=== PATIENT | female | born 1960 | race Caucasian/White ===

== ENCOUNTER → 2020-06-25 12:36 | Outpatient (CLI) | payer OTHER, SELFPAY ==
--- NOTE | 2020-06-25 12:36 | VDUE_ITS ---
Reason For Study: Renal failure stage 4 Right Arm Left Arm Right Cephalic Vein at the wrist measures Left Cephalic Vein at the wrist measures 0.12 x 0.12 cm. 0.12 x 0.13 cm. Right Cephalic Vein in the forearm measures Left Cephalic Vein in the forearm measures 0.10 x 0.10 cm. 0.13 x 0.14 cm. Right Cephalic Vein below antecub measures Left Cephalic Vein below antecub measures 0.12 x 0.12 cm. 0.18 x 0.18 cm. Right Cephalic Vein above antecub measures Left Cephalic Vein above antecub measures 0.15 x 0.15 cm. 0.08 x 0.08 cm. Right Cephalic Vein mid bicep measures 0.18 Left Cephalic Vein at mid bicep measures x 0.18 cm. 0.17 x 0.17 cm. Right Cephalic Vein at the shoulder measures Left Cephalic Vein at the shoulder measures 0.25 x 0.27 cm. 0.31 x 0.31 cm. Right Basilic Vein at the origin measures Basilic vein at origin measures 0.37 x 0.50 0.39 x 0.41 cm. cm. Right Basilic Vein mid bicep measures 0.32 x Basilic vein at bicep measures 0.38 x 0.50 0.32 cm. cm. Right Basilic Vein above antecub measures Basilic vein above antecub measures 0.48 x 0.30 x 0.31 cm. 0.63 cm. Right Brachial artery measures 0.37 x 0.37 Left Brachial artery measures 0.36 x 0.38 cm cm with a velocity of 85.3 cm/sec. with a velocity of 101.3 cm/sec. Right Radial artery measures 0.21 x 0.20 cm Left Radial artery measures 0.20 x 0.19 cm with a velocity of 63.3 cm/sec. with a velocity of 78.8 cm/sec. Interpretation Summary Diminutive bilateral upper extremity cephalic veins Adequate bilateral upper arm basilic veins Normal diameter and flow bilateral brachial and radial arteries. Ordering Physician: Duglas Guerrero Performed By: Cecelia More RVT ?
== END ==
PROVIDERS: Referring Provider Surgery; Visit Provider Surgery
DX: Z01.818 Encounter for other preprocedural examination (principal); N18.4 Chronic kidney disease, stage 4 (severe)
CPT/HCPCS: 93970

== ENCOUNTER 2020-07-21 07:16 | Day surgery (SDC) | payer OTHER, SELFPAY ==
[2020-07-09 13:26] VITALS: BMI 24.9
--- NOTE | 2020-07-14 10:06 | EKG12_ITS ---
Test Reason : PRE OP Blood Pressure : / mmHG Vent. Rate : 084 BPM Atrial Rate : 084 BPM P-R Int : 148 ms QRS Dur : 074 ms QT Int : 362 ms P-R-T Axes : 032 031 040 degrees QTc Int : 427 ms Normal sinus rhythm Low voltage QRS Septal infarct , age undetermined , cannot be excluded Abnormal ECG Confirmed by LESLEY TEE, ALTON ([id number]), make up editor MAYNOR ALTAMIRANO ([id number]) on 07/15/2020 1:08:12 PM Referred By: Duglas Guerrero Confirmed By:ALTON SUTTON MD
[2020-07-14 10:48] LABS: Hematocrit 36.7 % (37-47); Hemoglobin 11.7 g/dL (12.0-15.0); Mean Corp Hgb Conc 31.9 g/dL (32-36); Mean Corpuscular Hgb 28.7 pg (27.0-32.0); Mean Platelet Vol. 10.2 fl (6.2-12.0); Platelet Count 300 K/mm3 (150-450); RBC Distribution Width CV 12.2 % (11.6-14.6); RBC Distribution Width SD 40.4 fl (35.1-43.9); Red Blood Count 4.08 M/mm3 (4.2-5.4); White Blood Count 6.9 K/mm3 (4.4-11.0)
[2020-07-14 11:21] LABS: AST(SGOT) 14 U/L (15-37); Alanine Aminotransfer ALT/SGPT 17 U/L (13-56); Albumin, Serum 4.1 g/dL (3.2-5.0); Alkaline Phosphatase 68 U/L (45-117); Anion Gap 7 (5-15); BUN 49 mg/dL (7-18); BUN/Creat Ratio 10.8 RATIO (10-20); Calcium,Total 9.3 mg/dL (8.5-10.1); Chloride 107 mmol/L (98-107); Creatinine, Serum 4.55 mg/dL (0.55-1.02); EST Glomerular Filtration Rate 10 mL/min (>60); Est Glom Filt Rate - Afr Amer 13 mL/min (>60); Globulin 4.1 g/dL (2.2-4.2); Glucose 111 mg/dL (74-106); Potassium 4.7 mmol/L (3.5-5.1); Protein, Total 8.2 g/dL (6.4-8.2); Sodium Level 136 mmol/L (136-145)
[2020-07-21 07:43] VITALS: BP 137/83; PULSE 80; RESP 16; TEMP 37.3; O2SAT 100; BMI 25.1
[2020-07-21] MEDS: 0.9 % Sodium Chloride Viaflo 500 ML IV.SOLN IV (08:06)
--- NOTE | 2020-07-21 08:45 | PCM.HP.BLA ---
Problem List (1) Chronic renal failure, stage 4 (severe) Status: Chronic History and Physical Date of Admission: 07/21/20 Intake Visit Reasons: fistula creation Diet Consultant Required: No Is patient in pain?: No Allergies metronidazole [From Flagyl] Allergy (Unknown, Verified 07/09/20 13:28) Unknown Medications amlodipine 10 mg tablet 10 mg PO DAILY tab 07/09/20 [History Confirmed 07/09/20] cholecalciferol (vitamin D3) 50 mcg (2,000 unit) capsule 50 mcg PO DAILY 07/09/20 [History Confirmed 07/09/20] polyethylene glycol 3350 17 gram/dose oral powder 17 g PO DAILY 07/09/20 [History Confirmed 07/09/20] PFSH Medical History Polycystic kidney disease (Acute) Hypertension (Chronic) Surgical History Hx of hysterectomy (Acute) Hx of appendectomy (Acute) Hx of tubal ligation (Acute) Hx of cholecystectomy (Acute) Family History Mother Kidney disease Hypertension Sister Hypertension Kidney disease Sister Hypertension Kidney disease Brother Hypertension Kidney disease Social History (Updated 07/09/20 @ 13:[address] Duglas Guerrero MD) Smoking Status: Never smoker second hand exposure: No alcohol intake: never substance use type: does not use caffeine: Yes what type of physical activity do you participate in: walking frequency: 3-4 times per week HPI HPI HPI: ESTEFANY ESPINO, is a 59 F who presents to the office today for surgical consultation for creation of arteriovenous hemodialysis fistula. The patient is referred by her roll off driver and a written copy of my surgical consult recommendations will be returned to him. The patient has polycystic kidney disease. She has had progressive renal decline. She is not had previous hospitalizations or IV access. Whenever she gets blood drawn it is typically at the right antecubital space. She is right arm dominant. She has had no DVT. At the [facility] on June 25, 2020 she had bilateral extremity vein mapping. Unfortunately this demonstrates that bilateral upper extremity cephalic veins are very diminutive throughout. Bilateral upper arm basilic veins are borderline. Bilateral radial arteries are small while bilateral brachial arteries appear to be adequate [facility] [address] [place] [address] Saphenous Vein Mapping, Bilat 06/25/20 1243 MR#: [id number] Name: ESTEFANY ESPINO #:[id number] : 1960 59From: Duglas Guerrero MD Attending Dr: ISAIAH Crawfordtatus: REG CLI Ordering Dr: Duglas Guerrero MDDate: 06/25/20 Location:CVSSex:FC Admitted: Reason For Study: Renal failure stage 4 Right Arm Left Arm Right Cephalic Vein at the wrist measures Left Cephalic Vein at the wrist measures 0.12 x 0.12 cm. 0.12 x 0.13 cm. Right Cephalic Vein in the forearm measures Left Cephalic Vein in the forearm measures 0.10 x 0.10 cm. 0.13 x 0.14 cm. Right Cephalic Vein below antecub measures Left Cephalic Vein below antecub measures 0.12 x 0.12 cm. 0.18 x 0.18 cm. Right Cephalic Vein above antecub measures Left Cephalic Vein above antecub measures 0.15 x 0.15 cm. 0.08 x 0.08 cm. Right Cephalic Vein mid bicep measures 0.18 Left Cephalic Vein at mid bicep measures x 0.18 cm. 0.17 x 0.17 cm. Right Cephalic Vein at the shoulder measures Left Cephalic Vein at the shoulder measures 0.25 x 0.27 cm. 0.31 x 0.31 cm. Right Basilic Vein at the origin measures Basilic vein at origin measures 0.37 x 0.50 0.39 x 0.41 cm. cm. Right Basilic Vein mid bicep measures 0.32 x Basilic vein at bicep measures 0.38 x 0.50 0.32 cm. cm. Right Basilic Vein above antecub measures Basilic vein above antecub measures 0.48 x 0.30 x 0.31 cm. 0.63 cm. Right Brachial artery measures 0.37 x 0.37 Left Brachial artery measures 0.36 x 0.38 cm cm with a velocity of 85.3 cm/sec. with a velocity of 101.3 cm/sec. Right Radial artery measures 0.21 x 0.20 cm Left Radial artery measures 0.20 x 0.19 cm with a velocity of 63.3 cm/sec. with a velocity of 78.8 cm/sec. Interpretation Summary Diminutive bilateral upper extremity cephalic veins Adequate bilateral upper arm basilic veins Normal diameter and flow bilateral brachial and radial arteries. Ordering Physician: Duglas Guerrero Performed By: Cecelia More RVT ? 06/25/20 8000 Date Duglas Guerrero MD HPI HPI HPI: ESTEFANY ESPINO, is a 59 F who presents to the office today for ROS General General: No weight change, appetite, fatigue, colon cancer, breast cancer or weakness HEENT HEENT: No difficulty swallowing, eye injury, eye surgery, swollen glands or hoarseness Endo Endocrine: No thyroid disease, diabetes mellitus, thyroid cancer, Hair loss, heat intolerance or cold intolerance Skin Skin: No rash or changing moles Breast Breast: No left breast lump, right breast lump, nipple discharge, breast pain, abnormal mammogram, abnormal US or breast enlargement Musc Musculoskeletal: No back problems, arthritis, rheumatoid arthritis, gout or joint pain Cardio Cardiovascular: Yes high blood pressure; no murmur, pacemaker, heart disease, atrial fibrillation, heart attack, heart stent, palpitations, shortness of breat with exertion or chest pain Psych Psychiatric: No depression, anxiety or hearing voices Resp Respiratory: No shortness of breath, No sleep apnea, No cough, No COPD, No asthma, No emphysema, No wheezing Gastro Gastrointestinal: No abdominal pain, No nausea or vomiting, No diarrhea, No constipation, No blood in stool, No acid reflux, No hemorrhoids, No ulcers, No gallbladder problem, No black,tarry stools Yusef Hematologic: No blood thinners, No blood disorders, No bleeding, No anemia, No blood clots Neuro Neurologic: No weakness Exam Const General: cooperative, healthy appearing, comfortable, no acute distress Nutritional Appearance: average body habitus Orientation: alert, awake HENSC Head: normal to inspection Chest Breast Palpation: No nipple discharge Resp Effort & Inspection: normal respiratory effort Auscultation: clear to auscultation bilaterally Cardio Rate: regular rate Rhythm: regular rhythm Heart Sounds: no murmurs GI Other: Soft, mildly distended, nontender Skin General: no rashes or lesions noted Neuro Cognition: normal cognition Extrem General: no calf tenderness Other: Bilateral upper extremities demonstrate very small cephalic veins. Ultrasound inspection of the left upper arm suggests the basilic vein is intact however closer to the antecubital space it does appear to be quite small. Psych Affect: normal affect Assessment & Plan Problems 1. Polycystic kidney disease Q61.3 2. Chronic renal failure, stage 4 (severe) N18.4 Plan Stage IV chronic renal sufficiency. Polycystic kidney disease. Right arm dominant. Venous mapping demonstrates diminutive cephalic veins throughout. I propose for her an attempt at a left upper arm stage I basilic vein to brachial artery AV fistula creation. I discussed the technique, benefit, risk, alternatives. No guarantees of success have been offered. She is aware that additional procedures will be required. She states that she has an upcoming appointment for transplant consultation. She is not yet on hemodialysis. She has had an opportunity to ask and have questions answered. We will schedule and proceed at her discretion. I very much appreciate the kind opportunity of assisting with her surgical care. Copy and Dr. Ayse Guerrero M.D., F.A.C.S. s Orders Orders: Saphenous Vein Mapping, Bilat 06/25/20 Z01.818 Coding Level of Care Code 19694 Diagnoses Polycystic kidney disease Q61.3 Chronic renal failure, stage 4 (severe) N18.4 I have re-examined the patient. There are no clinical changes since date of exam. Procedure Criteria Procedure Type: Elective COVID Risk Discussion: The surgeon/proceduralist and patient have discussed in detail the risk of exposure to and/or potential harm posed by the COVID-19 virus with having a surgery/procedure at this time versus the risk of delaying the surgery/procedure. It is not possible to know either the risk of delaying the surgery or procedure or chance of getting an infection with perfect accuracy, but a joint decision was made between the patient and the surgeon/proceduralist to proceed at this time with the scheduled surgery/procedure as indicated on the consent form.
--- NOTE | 2020-07-21 09:19 | DCINST_ITS ---
Discharge Diet: Renal Diet Discharge Activity: May Not Drive - for 2-3 days or while taking narcotic pain medications., May Shower, May Take a Tub Bath - in 5 days. Lifting Restrictions: 5 pounds Keep extremity elevated above heart level: - - Keep arm elevated above the heart level for 3 days. Additional Activity Instructions:: Exercise hand vigorously with a stress ball. Call your doctor if your incision/area has: Continuous Slow Oozing, Sudden Increased Bleeding - apply pressure and call your doctor., Increased Pain/ Swelling, Increased Redness, Foul Smelling Discharge Call your doctor if you observe: Fever of 101 or Higher Suture Line Care: Avoid Pulling/Pushing, Avoid Pinching/Bending Cleanse incision/area with: Keep Dressing Clean & Dry Additional Dressing/Incision Instructions:: Change or remove dressing in two days. May protect with a gauze bandaid. Allergies/Adverse Reactions: Allergies metronidazole [From Flagyl] Allergy (Unknown, Verified 07/21/20 07:40) Unknown Medications to take at Discharge amlodipine 10 mg tablet 10 mg PO QHS tab 07/09/20 cholecalciferol (vitamin D3) 50 mcg (2,000 unit) capsule 50 mcg PO DAILY 07/09/20 polyethylene glycol 3350 17 gram/dose oral powder 17 g PO DAILY 07/09/20 Primary Care Physician: Ayse Licea DO [Primary Care Provider] - Test Results: Test results from this visit will be discussed in further detail at your follow- up appointment, if applicable. Please Follow Up With: Duglas Guerrero MD - [phone] When: Call to make an appointment for suture removal and follow up in 10 days.
[2020-07-21] MEDS: Bupivacaine Mpf 0.5% 30 ML VIAL (09:36)
[2020-07-21] MEDS: Heparin Injection (Vial) 5,000 UNIT/ML VIAL 5000 UNIT (09:36)
--- NOTE | 2020-07-21 10:09 | OP.PCM_ITS ---
Problem List (1) Chronic renal failure, stage 4 (severe) Status: Chronic Report of Operation Date of Procedure: 07/21/20 Pre-Operative Diagnosis: Stage IV chronic renal insufficiency Post-Operative Diagnosis: Same Surgery/Procedure Performed:: Stage I left upper extremity basilic vein to brachial artery arteriovenous fistula creation Description of Surgical Findings:: Timeout and informed consent was obtained. The patient was taken to the operating room placed upon the table the left upper extremity was sterilely prepped and draped ultrasound was used to map the course of the basilic vein which at the antecubital area directly overlying the brachial artery. 1% lidocaine mixed 50-50 with 0.5% Marcaine was used as a local anesthetic. 6 cc was used. A longitudinal incision was made over the basilic vein sharp and blunt dissection was used I dissected free the need for the brachial artery was identified and surfer (Darby controlled. The patient received 6000 units of heparin. The vein was ligated distally with 2 hemoclips. The vein was spatulated. Peripheral vascular clamps were placed on the brachial artery. A 11 blade was used to make an arteriotomy which was extended with Gallego scissors. The vein was spatulated and a end-to-side anastomosis was created with a running 7-0 Prolene. At the completion there is good antegrade retrograde flow. The vein appeared to have good flow in it. There was still a 2+ left radial pulse. Hemostasis was intact. The wound was closed with a deep layer of interrupted 3-0 Vicryl and then a running septic or 4-0 Monocryl. Steri-Strips Telfa site dressing applied. Sponge and instrument and needle counts were reported the surgeon to be correct. Specimens none. Drains none. Blood loss minimal. The patient was taken to the recovery area in satisfactory vision without apparent complication Duglas Guerrero M.D., F.A.C.S. Type of Anesthesia:: Local MAC Anesthesiologist: Richie Caldera
[2020-07-21 10:20] VITALS: BP 104/78; BP 137/83; PULSE 71; RESP 18; O2SAT 94
[2020-07-21 10:25] VITALS: BP 110/76; BP 137/83; PULSE 71; RESP 18; O2SAT 94
[2020-07-21 10:29] VITALS: BP 131/76; BP 137/83; PULSE 68; RESP 18; O2SAT 95
[2020-07-21 10:33] VITALS: BP 120/73; BP 137/83; PULSE 68; RESP 18; TEMP 37; O2SAT 95
[2020-07-21 11:25] VITALS: BP 125/76; BP 137/83; PULSE 65; RESP 16; TEMP 36.9; O2SAT 95
== END 2020-07-21 11:31 | disposition home or self-care (01) ==
LOC: SDC 07:17 → AC 07:17
PROVIDERS: Anesthesiology; PCP Student in an Organized Health Care Education/Training Program; Referring Provider Surgery; Visit Provider Surgery
PROC: (CPT 36819; principal; 2020-07-21 09:10)
DX: I12.9 Hypertensive chronic kidney disease with stage 1 through stage 4 chronic kidney disease, or unspecified chronic kidney disease (principal); N18.4 Chronic kidney disease, stage 4 (severe); Z11.59 Encounter for screening for other viral diseases; Q61.3 Polycystic kidney, unspecified; Z78.0 Asymptomatic menopausal state; Z87.19 Personal history of other diseases of the digestive system; Z79.899 Other long term (current) drug therapy
CPT/HCPCS: 01844; 36819; 36415; 80053; 85027; 87635; 93005; C9803; J7040; U0003

== ENCOUNTER 2020-08-01 20:58 | Emergency (ER) | payer OTHER, SELFPAY ==
[2020-08-01 20:59] VITALS: BP 143/83; PULSE 105; RESP 17; TEMP 36.3; O2SAT 100; BMI 25.1
--- NOTE | 2020-08-01 21:01 | ED.RN ---
PT [facility] [phone]
--- NOTE | 2020-08-01 21:35 | CT_ITS ---
STUDY: CT ABDOMEN AND PELVIS WITHOUT CONTRAST REASON FOR EXAM: Female, 59 years old. RT SIDE PAIN THAT RADIATES FROM FRONT TO BACK. Hx of polycystic kidney disease-not on dialysis. Previous cholecystectomy, appendectomy, tubal ligation and hysterectomy RADIATION DOSAGE (If Supplied By Facility): CTDIvol = ( 9.98 ) mGy, DLP = ( 531.17 ) mGycm TECHNIQUE: Transaxial images were obtained from the dome of the diaphragm to the symphysis pubis without oral contrast, and without intravenous contrast. Sagittal and coronal images were reconstructed. Individualized dose optimization techniques were used for this CT. COMPARISON: None. FINDINGS: The visualized lung bases are unremarkable. The visualized portions of the heart are within normal limits. 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 There are surgical clips in the gallbladder fossa consistent with a prior cholecystectomy. Normal spleen. Normal pancreas. Normal bilateral adrenal glands. Normal visualized stomach. Normal small intestine. There are multiple colonic diverticula consistent with diverticulosis. There is non-visualization of the appendix. Normal abdominal aorta. Normal inferior vena cava. Normal retroperitoneum. Normal urinary bladder. Normal abdominal wall. Normal osseous structures. 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 No evidence of acute intestinal pathology or acute obstructive uropathy. Electronically Signed: Marvin Becerra MD at 22:40 EDT Tel , Service support ,
[2020-08-01 21:42] LABS: Bacteria 0 SEEN /hpf (None Seen); Mucous, Urine 0 SEEN /hpf (<or=2+); Red Blood Cells-Urine 0 SEEN /hpf (0-5); Squamous Epithelial Cells - UA 0 SEEN /hpf (5-10)
[2020-08-01] MEDS: Morphine 4 MG/ML Syringe IV (21:44)
[2020-08-01] MEDS: Ondansetron 4 MG/2 ML Vial IV (21:44)
[2020-08-01 21:49] LABS: Color, Urine Yellow (Yellow); Glucose, Dipstick Normal (Normal); Ketone-Dipstick Negative (Negative); Leukocyte Esterase-Dipstick 25 /ul (Negative); Nitrite-Dipstick Negative (Negative); Occult Blood-Urine 25 /ul (Negative); Protein-Dipstick 100 mg/dl (Negative); Urine Bilirubin Dipstick Negative (Negative); Urine Clarity Clear (Clear); Urine Urobilinogen Normal (Normal); Urine pH 6.5 (5.0 - 8.0)
--- NOTE | 2020-08-01 21:52 | ED.DCSUM_ITS ---
- ER Visit Summary Date of Service: 08/01/20 Chief Complaint: Right flank pain History of Present Illness: The patient is a 59 F who presents with right flank pain that began yesterday. Patient states the pain radiates to her right upper quadrant area. Patient states the pain is aching. Patient states the pain is worse with laying on her right side and with applying pressure to her right side. Patient denies any nausea or vomiting. Patient denies any diarrhea, melena, or hematochezia. Patient denies any dysuria or hematuria. Patient does have a history of end-stage renal disease. Patient states she is in the process of getting an AV fistula for dialysis. Patient denies any history of kidney stones. Physical Examination: Vital signs are stable. Patient is afebrile. Patient is in no acute distress. Oral mucosa is pink and moist. Neck is supple. Trachea is midline. There is no JVD. Heart was regular rate and rhythm. Lungs are clear and equal bilaterally. Abdomen is soft. Bowel sounds are normal. There is some mild right upper quadrant and right flank tenderness. There is no rebound or guarding noted. Cranial nerves II through XII are intact. There are no focal motor or sensory deficits noted. Extremities are intact. There is no calf tenderness or edema. Test Results: BC, comprehensive metabolic profile, and lipase were obtained were within normal limits. Urinalysis does not show any evidence of urinary tract infection. CT scan of the abdomen and pelvis was obtained. There is polycystic kidney and liver disease but no acute anterior abdominal pathology. This was interpreted by the radiologist and reviewed by myself. Emergency Department Course and Treatment: Patient was given morphine and Zofran here. Patient was feeling better on reevaluation. Patient was given a prescription for short course of [place]. Patient was instructed to follow-up with her primary care physician in 5 to 7 days. Patient understood and was agreeable with the plan. All questions were answered. Disposition: Discharge home Impression: Right flank pain This note was generated with [employer] dictation software. It may contain incorrect words, spelling, and punctuation that were not noted in review of the chart prior to signing ED Disposition - Plan for ED Patient: Disposition: Home or Assisted Living Diagnosis: Acute right flank pain Instructions: ED Flank Pain Uncertain Cause Prescriptions: Hydrocodone Bitart/Apap 5-325 [[place] 5MG-325MG] 1 tab PO Q6H PRN PRN 3 Days #10 tab PRN Reason: Pain Prescription Printed Referrals: Ayse Licea DO [Primary Care Provider] - 3-5 Days
[2020-08-01 22:06] LABS: AST(SGOT) 13 U/L (15-37); Alanine Aminotransfer ALT/SGPT 14 U/L (13-56); Albumin, Serum 3.9 g/dL (3.2-5.0); Alkaline Phosphatase 65 U/L (45-117); Anion Gap 9 (5-15); BUN 48 mg/dL (7-18); BUN/Creat Ratio 10.6 RATIO (10-20); Calcium,Total 9.4 mg/dL (8.5-10.1); Chloride 106 mmol/L (98-107); Creatinine, Serum 4.54 mg/dL (0.55-1.02); EST Glomerular Filtration Rate 11 mL/min (>60); Est Glom Filt Rate - Afr Amer 13 mL/min (>60); Estimated Creatinine Clearance 11.38 ml/min; Globulin 3.9 g/dL (2.2-4.2); Glucose 125 mg/dL (74-106); Lipase 159 U/L (73-393); Potassium 4.3 mmol/L (3.5-5.1); Protein, Total 7.8 g/dL (6.4-8.2); Sodium Level 136 mmol/L (136-145)
[2020-08-01 22:07] LABS: Absolute Lymphocyte Count 1.02 X10^3/uL (0.83-4.51); Absolute Neutrophil Count 8.4 X10^3/uL (2.0-7.7); Basophil# 0.05 X10^3/uL; Basophil% 0.5 % (0-1); Eosinophil# 0.08 X10^3/uL; Eosinophils% 0.8 % (0-5); Hematocrit 34.6 % (37-47); Hemoglobin 11.4 g/dL (12.0-15.0); Lymphocyte # 1.02 X10^3/ul (4.0); Lymphocyte % 9.7 % (19-41); Mean Corp Hgb Conc 32.9 g/dL (32-36); Mean Corpuscular Hgb 29.3 pg (27.0-32.0); Mean Corpuscular Volume 88.9 fL (81-99); Mean Platelet Vol. 10.3 fl (6.2-12.0); Monocyte# 0.95 X10^3/uL; NRBC Flagged by Analyzer 0 % (0-5); Neutrophil # 8.43 X10^3/uL (2.7-7.7); Neutrophil % 79.7 % (47-70); Platelet Count 258 K/mm3 (150-450); RBC Distribution Width CV 12.2 % (11.6-14.6); RBC Distribution Width SD 39.8 fl (35.1-43.9); Red Blood Count 3.89 M/mm3 (4.2-5.4); White Blood Count 10.6 K/mm3 (4.4-11.0)
[2020-08-01 22:30] LABS: White Blood Cells 0-5 SEEN /hpf (0-5)
[2020-08-01 23:15] VITALS: BP 135/73
[2020-08-01 23:16] VITALS: BP 135/73
== END 2020-08-01 23:17 | disposition home or self-care (01) ==
PROVIDERS: Emergency Provider Emergency Medicine; PCP Student in an Organized Health Care Education/Training Program
DX: R10.9 Unspecified abdominal pain (principal); I12.0 Hypertensive chronic kidney disease with stage 5 chronic kidney disease or end stage renal disease; N18.6 End stage renal disease; Z87.19 Personal history of other diseases of the digestive system; Z90.49 Acquired absence of other specified parts of digestive tract
CPT/HCPCS: 74176; 80053; 81001; 83690; 85025; 96374; 96375; 99282; A4216; J2405

== ENCOUNTER 2020-09-15 05:28 | Day surgery (SDC) | payer OTHER, SELFPAY ==
[2020-09-04 10:33] VITALS: BMI 24.5
[2020-09-12 10:13] LABS: Hematocrit 34.4 % (37-47); Mean Corpuscular Hgb 28.5 pg (27.0-32.0); Mean Corpuscular Volume 89.1 fL (81-99); Mean Platelet Vol. 9.6 fl (6.2-12.0); Platelet Count 287 K/mm3 (150-450); RBC Distribution Width CV 12.6 % (11.6-14.6); RBC Distribution Width SD 41.1 fl (35.1-43.9); Red Blood Count 3.86 M/mm3 (4.2-5.4); White Blood Count 8.4 K/mm3 (4.4-11.0)
[2020-09-12 11:02] LABS: Anion Gap 6 (5-15); BUN 63 mg/dL (7-18); BUN/Creat Ratio 12.7 RATIO (10-20); Calcium,Total 9.6 mg/dL (8.5-10.1); Chloride 108 mmol/L (98-107); Creatinine, Serum 4.98 mg/dL (0.55-1.02); EST Glomerular Filtration Rate 9 mL/min (>60); Est Glom Filt Rate - Afr Amer 11 mL/min (>60); Glucose 93 mg/dL (74-106); Potassium 4.9 mmol/L (3.5-5.1); Sodium Level 138 mmol/L (136-145)
[2020-09-15] VITALS (7 sets, daily range): BP systolic 97–126; BP diastolic 59–78; PULSE 78–89; RESP 16–18; TEMP 36.2–36.9; O2SAT 95–100; BMI 25.0
--- NOTE | 2020-09-15 05:43 | PCM.HP.BLA ---
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 Required: No Is patient in pain?: No Allergies metronidazole [From Flagyl] Allergy (Unknown, Verified 09/04/20 10:41) Unknown Medications amlodipine 10 mg tablet 10 mg PO QHS tab 07/09/20 [History Confirmed 09/04/20] cholecalciferol (vitamin D3) 50 mcg (2,000 unit) capsule 50 mcg PO DAILY 07/09/20 [History Confirmed 09/04/20] polyethylene glycol 3350 17 gram/dose oral powder 17 g PO DAILY 07/09/20 [History Confirmed 09/04/20] PFSH Medical History Chronic renal failure, stage 4 (severe) (Chronic) Polycystic kidney disease (Acute) Hypertension (Chronic) Surgical History (Updated 09/04/20 @ 10:33 by Keily Mejia) History of arteriovenostomy for renal dialysis (Acute ~07/2020) Hx of hysterectomy (Acute) Hx of appendectomy (Acute) Hx of tubal ligation (Acute) Hx of cholecystectomy (Acute) Family History Mother Kidney disease Hypertension Sister Hypertension Kidney disease Sister Hypertension Kidney disease Brother Hypertension Kidney disease Social History (Updated 09/04/20 @ 13:47 by Kellen STAFFORD PALaureenC) Smoking Status: Never smoker second hand exposure: No alcohol intake: never substance use type: does not use caffeine: Yes what type of physical activity do you participate in: walking frequency: 3-4 times per week HPI HPI HPI: ESTEFANY ESPINO, is a 59 F who presents to the office today for HPI HPI Surgical H&P: Yes HPI: ESTEFANY ESPINO is a 59 F who presents to the office today for an update history and physical for an upcoming procedure. Patient denies recent hospitalizations or illnesses since her last visit. Patient denies recent shortness of breath, cough or in contact with any one who has had COVID. Patient denies pain at the fistula or discomfort. She notes intermittent tingling/numbness at the left 5th digit. She denies any previous cardiac or pulmonary history. She denies previous complications with anesthesia. Patient had a stage I left upper extremity basilic vein to brachial artery AV fistula creation which Dr. Guerrero performed for her on July 21, 2020. She is not currently on dialysis. Dr. Desai is her enrollment coordinator. She is in the process to become on [facility] transplant list. ROS General General: No weight change, appetite, fatigue, colon cancer, breast cancer or weakness HEENT HEENT: No difficulty swallowing, eye injury, eye surgery, swollen glands or hoarseness Endo Endocrine: No thyroid disease, diabetes mellitus, thyroid cancer, Hair loss, heat intolerance or cold intolerance Skin Skin: No rash or changing moles Breast Breast: No left breast lump, right breast lump, nipple discharge, breast pain, abnormal mammogram, abnormal US or breast enlargement Musc Musculoskeletal: No back problems, arthritis, rheumatoid arthritis, gout or joint pain Cardio Cardiovascular: Yes high blood pressure; no murmur, pacemaker, heart disease, atrial fibrillation, heart attack, heart stent, palpitations, shortness of breat with exertion or chest pain Psych Psychiatric: No depression, anxiety or hearing voices Resp Respiratory: No shortness of breath, No sleep apnea, No cough, No COPD, No asthma, No emphysema, No wheezing Gastro Gastrointestinal: No abdominal pain, No nausea or vomiting, No diarrhea, No constipation, No blood in stool, No acid reflux, No hemorrhoids, No ulcers, No gallbladder problem, No black,tarry stools Yusef Hematologic: No blood thinners, No blood disorders, No bleeding, No anemia, No blood clots Neuro Neurologic: No weakness Exam Const General: cooperative, healthy appearing, comfortable, no acute distress [facility] Head: normal to inspection Eyes General: appearance normal, both eyes and all related structures Neck Neck: normal visual inspection Neck mass: No Chest Breast Palpation: No nipple discharge Resp Effort & Inspection: normal respiratory effort Auscultation: clear to auscultation bilaterally Cardio Rate: regular rate Rhythm: regular rhythm Heart Sounds: no murmurs GI Inspection: normal to inspection Palpation: soft Auscultation: normal bowel sounds Skin General: no rashes or lesions noted Neuro General: no focal motor deficits, CN's II-XI intact bilaterally Extrem General: normal to inspection Other: left upper extremity fistula- incision completely healed. Excellent pulse, bruit and thrill. Psych Appearance: grossly normal Affect: normal affect Assessment & Plan Problems 1. Chronic renal failure, stage 4 (severe) N18.[address] Guerrero will plan to perform a stage II transposition of the left upper extremity basilic vein to brachial artery arteriovenous fistula creation. Procedure details, benefits and risks were reviewed. Patient has had the opportunity to ask and have questions answered. Patient verbally understands and agrees with the plan. Patient to obtain her labs at [facility] [place]. Order was given to the patient. Coding Level of Care Code No Charge Diagnoses Chronic renal failure, stage 4 (severe) N18.4 Comment Update H&P 09/04/20 7226 <Electronically signed by Kellen STAFFORD PA-C> Date Patient was interviewed and reexamined. I have re-examined the patient. There are no clinical changes since date of exam. Procedure Criteria Procedure Type: Elective COVID Risk Discussion: The surgeon/proceduralist and patient have discussed in detail the risk of exposure to and/or potential harm posed by the COVID-19 virus with having a surgery/procedure at this time versus the risk of delaying the surgery/procedure. It is not possible to know either the risk of delaying the surgery or procedure or chance of getting an infection with perfect accuracy, but a joint decision was made between the patient and the surgeon/proceduralist to proceed at this time with the scheduled surgery/procedure as indicated on the consent form.
[2020-09-15] MEDS: Lactated Ringers 1,000 ML 100 ML IV (06:37)
--- NOTE | 2020-09-15 07:03 | DCINST_ITS ---
Discharge Diet: Renal Diet Discharge Activity: May Not Drive - for 2-3 days or while taking narcotic pain medications., May Not Shower, May Take a Tub Bath - in 5 days. Lifting Restrictions: 5 pounds Keep extremity elevated above heart level: - - Keep arm elevated above the heart level for 3 days. Additional Activity Instructions:: Exercise hand vigorously with a stress ball. Call your doctor if your incision/area has: Continuous Slow Oozing, Sudden Increased Bleeding - apply pressure and call your doctor., Increased Pain/ Swelling, Increased Redness, Foul Smelling Discharge Call your doctor if you observe: Fever of 101 or Higher Suture Line Care: Avoid Pulling/Pushing, Avoid Pinching/Bending Cleanse incision/area with: Keep Dressing Clean & Dry Additional Dressing/Incision Instructions:: Change or remove dressing in two days. May leave the steri strips on for one week after dressing removal. Allergies/Adverse Reactions: Allergies metronidazole [From Flagyl] Allergy (Unknown, Verified 09/15/20 06:23) Unknown Medications to take at Discharge amlodipine 10 mg tablet 10 mg PO QHS tab 07/09/20 cholecalciferol (vitamin D3) 50 mcg (2,000 unit) capsule 50 mcg PO QHS 07/09/20 polyethylene glycol 3350 17 gram/dose oral powder 17 g PO QHS 07/09/20 Primary Care Physician: Ayse Licea DO [Primary Care Provider] - Test Results: Test results from this visit will be discussed in further detail at your follow- up appointment, if applicable. Please Follow Up With: Duglas Guerrero MD - [phone] When: Call to make an appointment for suture removal and follow up in 10 days.
[2020-09-15] MEDS: Cefazolin 2 GM in 0.9% Normal Saline 100 ML IV (07:18)
[2020-09-15] MEDS: Lidocaine 1% (30 ml sdv) 30 ML Vial (08:00)
[2020-09-15] MEDS: Bupivacaine Mpf 0.5% 30 ML VIAL (08:00)
[2020-09-15] MEDS: Heparin Injection (Vial) 5,000 UNIT/ML VIAL 5000 UNIT (08:30)
[2020-09-15] MEDS: Lidocaine 0.5% (50 ml) 50 ML Vial (08:30)
--- NOTE | 2020-09-15 09:08 | OP.PCM_ITS ---
Problem List (1) Problem with dialysis access Status: Acute Qualifiers: Encounter type: initial encounter Qualified Code(s): T82.898A - Other specified complication of vascular prosthetic devices, implants and grafts, initial encounter Report of Operation Date of Procedure: 09/15/20 Pre-Operative Diagnosis: Stage IV chronic renal insufficiency with need for arteriovenous hemodialysis access and deeply placed vein in need of transposition Post-Operative Diagnosis: Same Surgery/Procedure Performed:: Stage II transposition left upper arm basilic vein to brachial artery arteriovenous hemodialysis fistula creation Description of Surgical Findings:: Timeout and informed consent was obtained. 59-year-old female was taken the o perating placed on the table underwent monitored anesthesia care. The left upper semisterilely prepped and draped. Throughout the procedure 32 cc of 1% lidocaine mixed 50-50 with 0.5% Marcaine and 23 cc of half percent lidocaine was used as local anesthetic. Local was instilled. A longitudinal incision was made the volar aspect the left upper arm. Sharp blunt dissection was used to identify the basilic vein. It had nicely matured. It was dissected free. Side branches were secured with 3-0 Vicryl ligatures and hemoclips were indicated. Dissection was formed up to the shoulder. The vein was marked and then measured. A curvilinear spot more superficial to the skin more on the anterior aspect of the upper arm was positioned. Sharp and blunt dissection was used to identify the brachial artery. The vein was then ligated at the antecubital space with 3-0 Vicryl ligature and Hemoclip. A tunneler was placed superficially from the antecubital area to the shoulder area. The vein was placed through the tunneler. Patient then received 1000 units of heparin. After adequate circulating time peripheral vascular clamps were placed on the brachial artery and 11 blade was used to make an arteriotomy which was extended with Gallego scissors. A end-to-side anastomosis was created with running 7-0 Prolene. The vein had been nicely spatulated. Good hemostasis was intact. There was a very strong pulse thrill and bruit at the completion. The vein appeared to have a good positional lie. There was a 2+ left radial pulse and 1+ left ulnar pulse. The hand appeared to be warm and viable. The patient received 20 mg of protamine as reversal. The deep subcutaneous tissues approximated with interrupted 3-0 Vicryl. Subdermal tissues approximated the same. Skin edges approximated running subicular 4-0 Monocryl. Steri-Strips Telfa soft roll Anirudh wrap applied. Sponge and instrument and needle counts were reported the surgeon be correct. It also 100 cc. Specimens none. Drains none. The patient was taken to the recovery area in satisfactory edition without apparent complication Duglas Guerrero M.D., F.A.C.S. Type of Anesthesia:: Local MAC Anesthesiologist: Armand Breen
--- NOTE | 2020-09-15 09:20 | HP_ITS ---
Intake Vital Signs 09/04/20 Height 5 ft 4 in 09/04/20 Weight: 143 lb 09/04/20 BP 149/77 H 09/04/20 Blood Pressure Location Rt brachial 09/04/20 Position Sitting 09/04/20 Respiration 16 09/04/20 Pulse 105 H 09/04/20 Pulse Source Monitor 09/04/20 Temp 98.2 F 09/04/20 Temp Source Temporal 09/04/20 Pulse Oximetry (%) 100 09/04/20 Oxygen Delivery Method room air Intake Visit Reasons: FU fistula creation/ update h&p stage 2 RC Chief Complaint: discuss stage 2 Product Support Representative Required: No Is patient in pain?: No Allergies metronidazole [From Flagyl] Allergy (Unknown, Verified 09/04/20 10:41) Unknown Medications amlodipine 10 mg tablet 10 mg PO QHS tab 07/09/20 [History Confirmed 09/04/20] cholecalciferol (vitamin D3) 50 mcg (2,000 unit) capsule 50 mcg PO DAILY 07/09/20 [History Confirmed 09/04/20] polyethylene glycol 3350 17 gram/dose oral powder 17 g PO DAILY 07/09/20 [History Confirmed 09/04/20] PFSH Medical History Chronic renal failure, stage 4 (severe) (Chronic) Polycystic kidney disease (Acute) Hypertension (Chronic) Surgical History (Updated 09/04/20 @ 10:33 by Keily Mejia) History of arteriovenostomy for renal dialysis (Acute ~07/2020) Hx of hysterectomy (Acute) Hx of appendectomy (Acute) Hx of tubal ligation (Acute) Hx of cholecystectomy (Acute) Family History Mother Kidney disease Hypertension Sister Hypertension Kidney disease Sister Hypertension Kidney disease Brother Hypertension Kidney disease Social History (Updated 09/04/20 @ 13:47 by Kellen STAFFORD PA-C) Smoking Status: Never smoker second hand exposure: No alcohol intake: never substance use type: does not use caffeine: Yes what type of physical activity do you participate in: walking frequency: 3-4 times per week HPI HPI HPI: ESTEFANY ESPINO, is a 59 F who presents to the office today for HPI HPI Surgical H&P: Yes HPI: ESTEFANY ESPINO, is a 59 F who presents to the office today for an update history and physical for an upcoming procedure. Patient denies recent hospitalizations or illnesses since her last visit. Patient denies recent shortness of breath, cough or in contact with any one who has had COVID. Patient denies pain at the fistula or discomfort. She notes intermittent tingling/numbness at the left 5th digit. She denies any previous cardiac or pulmonary history. She denies previous complications with anesthesia. Patient had a stage I left upper extremity basilic vein to brachial artery AV fistula creation which Dr. Guerrero performed for her on July 21, 2020. She is not currently on dialysis. Dr. Desai is her schedule hanger. She is in the process to become on [facility] transplant list. ROS General General: No weight change, appetite, fatigue, colon cancer, breast cancer or weakness HEENT HEENT: No difficulty swallowing, eye injury, eye surgery, swollen glands or hoarseness Endo Endocrine: No thyroid disease, diabetes mellitus, thyroid cancer, Hair loss, heat intolerance or cold intolerance Skin Skin: No rash or changing moles Breast Breast: No left breast lump, right breast lump, nipple discharge, breast pain, abnormal mammogram, abnormal US or breast enlargement Musc Musculoskeletal: No back problems, arthritis, rheumatoid arthritis, gout or joint pain Cardio Cardiovascular: Yes high blood pressure; no murmur, pacemaker, heart disease, atrial fibrillation, heart attack, heart stent, palpitations, shortness of breat with exertion or chest pain Psych Psychiatric: No depression, anxiety or hearing voices Resp Respiratory: No shortness of breath, No sleep apnea, No cough, No COPD, No asthma, No emphysema, No wheezing Gastro Gastrointestinal: No abdominal pain, No nausea or vomiting, No diarrhea, No constipation, No blood in stool, No acid reflux, No hemorrhoids, No ulcers, No gallbladder problem, No black,tarry stools Yusef Hematologic: No blood thinners, No blood disorders, No bleeding, No anemia, No blood clots Neuro Neurologic: No weakness Exam Const General: cooperative, healthy appearing, comfortable, no acute distress [facility] Head: normal to inspection Eyes General: appearance normal, both eyes and all related structures Neck Neck: normal visual inspection Neck mass: No Chest Breast Palpation: No nipple discharge Resp Effort & Inspection: normal respiratory effort Auscultation: clear to auscultation bilaterally Cardio Rate: regular rate Rhythm: regular rhythm Heart Sounds: no murmurs GI Inspection: normal to inspection Palpation: soft Auscultation: normal bowel sounds Skin General: no rashes or lesions noted Neuro General: no focal motor deficits, CN's II-XI intact bilaterally Extrem General: normal to inspection Other: left upper extremity fistula- incision completely healed. Excellent pulse, bruit and thrill. Psych Appearance: grossly normal Affect: normal affect Assessment & Plan Problems 1. Chronic renal failure, stage 4 (severe) N18.[address] Guerrero will plan to perform a stage II transposition of the left upper extremity basilic vein to brachial artery arteriovenous fistula creation. Procedure details, benefits and risks were reviewed. Patient has had the opportunity to ask and have questions answered. Patient verbally understands and agrees with the plan. Patient to obtain her labs at [facility]. Order was given to the patient. Coding Level of Care Code No Charge Diagnoses Chronic renal failure, stage 4 (severe) N18.4 Comment Update H&P
== END 2020-09-15 10:55 | disposition home or self-care (01) ==
LOC: SDC 05:38 → AC 05:39
PROVIDERS: PCP Student in an Organized Health Care Education/Training Program; Referring Provider Surgery; Visit Provider Surgery
PROC: (CPT 36819; principal; 2020-09-15 07:15)
DX: T82.898A Other specified complication of vascular prosthetic devices, implants and grafts, initial encounter (principal); I12.9 Hypertensive chronic kidney disease with stage 1 through stage 4 chronic kidney disease, or unspecified chronic kidney disease; N18.4 Chronic kidney disease, stage 4 (severe); Z99.2 Dependence on renal dialysis; Q61.3 Polycystic kidney, unspecified; Z20.828 Contact with and (suspected) exposure to other viral communicable diseases; Z78.0 Asymptomatic menopausal state; Z87.19 Personal history of other diseases of the digestive system; Z79.899 Other long term (current) drug therapy
CPT/HCPCS: 01844; 36819; 36415; 80048; 85027; 87426; C9803; J7040; J7120; J2405